=== PATIENT | female | born 1960 | race Caucasian/White ===

== ENCOUNTER 2024-04-26 09:51 | Outpatient (CLI) | payer SELFPAY ==
[2024-04-26 11:09] LABS: #Basophils 0.03 10x3/uL (0.0-0.2); %Basophils 0.3 % (0.0-1.0); %Eosinophils 0.7 % (0.0-10.0); %Lymphocytes 20.4 % (21.0-51.0); %Monocytes 7.6 % (0.0-10.0); %Neutrophils 70.6 % (42.0-75.0); Hematocrit 38.8 % (36.0-47.0); Hemoglobin 13.1 g/dL (12.0-16.0); Mean Corpuscular HGB CONC 33.8 g/dL (32.0-36.0); Mean Corpuscular Hemoglobin 35.4 pg (27.0-31.0); Mean Corpuscular Volume 104.9 fL (78.0-98.0); Mean Platelet Volume 9.6 fL (7.4-10.4); Platelet Count 322 10x3/uL (130-400); RBC Distribution Width 13.8 % (11.5-14.5)
[2024-04-26 11:31] LABS: Anion Gap 11 mmol/L (10-20); BUN (Urea Nitrogen) 5 mg/dL (9.8-20.1); Calc. Creatinine Clearance 0 mL/min (70-130); Calcium 9.2 mg/dL (7.8-10.44); Carbon Dioxide 24 mmol/L (23-31); Chloride 103 mmol/L (98-107); Estimated GFR 97; Glucose 102 mg/dL (80-115); Potassium 3.4 mmol/L (3.5-5.1); Sodium 135 mmol/L (136-145)
== END 2024-04-26 09:52 | disposition home or self-care (01) ==
LOC: LABBT 09:51
PROVIDERS: ATTEND Orthopaedic Surgery
DX: Z01.818 Encounter for other preprocedural examination (principal); S52.501A Unspecified fracture of the lower end of right radius, initial encounter for closed fracture
CPT/HCPCS: 80048; 85025; 93005; 93010

== ENCOUNTER 2024-04-29 11:18 | Day surgery (SDC) | payer SELFPAY ==
[2024-04-26 10:20] VITALS: BMI 26.2
[2024-04-29] MEDS ORDERED: fentaNYL 50 mcg/mL 1 mL Vial ONE ×2 (11:32→12:59)
[2024-04-29] MEDS ORDERED: Bupivacaine PF 0.5% 30 ML VIAL ONE (11:33)
[2024-04-29] MEDS ORDERED: Midazolam HCl 2 mg/2 ml Vial ONE (11:33)
[2024-04-29] MEDS ORDERED: CEFAZOLIN 2 GM VIAL ONE (12:02)
[2024-04-29] MEDS ORDERED: Sodium Chloride 0.9% 100 ML ONE (12:02)
[2024-04-29] MEDS ORDERED: Ondansetron PF 4 MG/2 ML Vial ONE (12:50)
[2024-04-29] MEDS ORDERED: Dexamethasone 4 mg/ml Vial ONE (12:50)
[2024-04-29] MEDS ORDERED: Lidocaine 1% PF 5 ML VIAL ONE (12:50)
[2024-04-29] MEDS ORDERED: Bupivacaine HCl 0.5%/Epinephrine 1:200,000/PF 30 ml Vial ONE (12:50)
[2024-04-29] MEDS ORDERED: PROPOFOL 200 MG/20 ML VIAL ONE (12:50)
[2024-04-29] MEDS ORDERED: fentaNYL PF 100 MCG/2 ML SYRINGE ONE ×2 (13:43→14:28)
[2024-04-29] MEDS ORDERED: HYDROcodone/Acetaminophen 5/325 mg Tablet ONE (15:09)
== END 2024-04-29 15:50 | disposition home or self-care (01) ==
LOC: SDC 11:18
PROVIDERS: ATTEND Orthopaedic Surgery
PROC: 3E0T3BZ Introduction of Anesthetic Agent into Peripheral Nerves and Plexi, Percutaneous Approach (ICD-10-PCS; principal; 2024-04-29)
PROC: 0PSH04Z Reposition Right Radius with Internal Fixation Device, Open Approach (ICD-10-PCS; principal; 2024-04-29)
DX: S52.501A Unspecified fracture of the lower end of right radius, initial encounter for closed fracture (principal); Z90.89 Acquired absence of other organs; Z95.5 Presence of coronary angioplasty implant and graft; Z91.041 Radiographic dye allergy status; Z88.8 Allergy status to other drugs, medicaments and biological substances; W19.XXXA Unspecified fall, initial encounter
CPT/HCPCS: C1713; J0665; J1100; J2250; J2405; J2704; J3010